=== PATIENT | male | born 1975 | race African-American/Black ===

== ENCOUNTER 2018-07-26 19:59 | Emergency (ER) | payer OTHER ==
[2018-07-26 20:05] VITALS: BP 136/81; PULSE 62; RESP 20; TEMP 98.5
--- NOTE | 2018-07-26 20:53 | ED ---
Upper Extremity HPI - General Chief Complaint: Extremity Injury, Upper Stated Complaint: Hand pain Time Seen by Provider: 07/26/18 20:10 Source: patient, RN notes reviewed, old records reviewed Mode of arrival: ambulatory Limitations: no limitations - History of Present Illness Initial Comments: Patient is a 42 year old male with CC of L hand and wrist pain from ganglion cyst. Patient reports that he has had this cyst drained in the past. 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 Patient is R handed. - Related Data Home Medications Medication Instructions Recorded Confirmed No Known Home Medications 07/26/18 07/26/18 Allergies Allergy/AdvReac Type Severity Reaction Status Date / Time No Known Allergies Allergy Verified 07/26/18 20:05 Review of Systems ROS Statement: Those systems with pertinent positive or pertinent negative responses have been documented in the HPI. ROS Other: All systems not noted in ROS Statement are negative. Past Medical History Past Medical History: No Reported History History of Any Multi-Drug Resistant Organisms: None Reported Past Surgical History: No Surgical Hx Reported Past Psychological History: No Psychological Hx Reported Smoking Status: Never smoker Past Alcohol Use History: None Reported Past Drug Use History: None Reported General Exam - General Exam Comments Initial Comments: This is a 42 year old male, no acute distress. Limitations: no limitations General appearance: alert, in no apparent distress Head exam: Present: atraumatic, normocephalic, normal inspection Eye exam: Present: normal appearance, PERRL, EOMI. Absent: scleral icterus, conjunctival injection, periorbital swelling ENT exam: Present: normal exam, mucous membranes moist Neck exam: Present: normal inspection. Absent: tenderness, meningismus, lymphadenopathy Respiratory exam: Present: normal lung sounds bilaterally. Absent: respiratory distress, wheezes, rales, rhonchi, stridor Cardiovascular Exam: Present: regular rate, normal rhythm, normal heart sounds. Absent: systolic murmur, diastolic murmur, rubs, gallop, clicks GI/Abdominal exam: Present: soft, normal bowel sounds. Absent: distended, tenderness, guarding, rebound, rigid Extremities exam: Present: normal inspection, full ROM, normal capillary refill. Absent: tenderness, pedal edema, joint swelling, calf tenderness Left Upper Arm exam: Present: normal inspection, full ROM Elbow exam: Present: normal inspection, full ROM Forearm Wrist exam: Present: normal inspection, full ROM Hand Wrist exam: Present: full ROM, swelling (evidence of GAnglion cyst measuring 2cm. ). Absent: normal inspection Back exam: Present: normal inspection Neurological exam: Present: alert, oriented X3, CN II-XII intact Psychiatric exam: Present: normal affect, normal mood Skin exam: Present: warm (d), dry, intact, normal color. Absent: rash Course Vital Signs 07/26/18 20:01 Temperature 98.5 F Pulse Rate 62 Respiratory 20 Rate Blood Pressure 136/81 O2 Sat by Pulse 100 Oximetry Procedures - Joint Aspiration/Injection Indications: to relieve pressure/pain Side of Body: left Joint Aspirated: wrist/hand Ultrasound Guidance: No Skin Prep: sterile prep and drape Local Anesthesia Used: Lidocaine 1% Amount of Anesthesia Used (mLs): 2 Needle Size Used: 18G Syringe Size Used: 5cc Fluid Obtained: viscous Total Fluid Obtained (mls): 2 Patient Tolerated Procedure: well, no complications Medical Decision Making - Medical Decision Making 42 year old male with L ganglion cyst requesting drainage. Sterile field used and approximately 2cc of viscous clear fluid removed from ganglion cyst from 18g needle. Patient has relief. Patient had dressing placed over area. Discussed that he should follow up with PCP and orthopedic. Return parameters discussed. Disposition Clinical Impression: Ganglion cyst of dorsum of left wrist Disposition: HOME SELF-CARE Condition: Good Instructions: Ganglion Cysts (ED) Additional Instructions: Patient should take Motrin times for pain. Apply ice over the area. Monitor for any signs of infection including worsening redness swelling or drainage. Follow-up with follow up specialist. Is patient prescribed a controlled substance at d/c from ED?: No Referrals: None,Stated [Primary Care Provider] - 1-2 days Sameer Cantu MD [STAFF PHYSICIAN] - 1-2 days Gavino Lundberg DO [Doctor of Osteopathic Medicine] - 1-2 days Time of Disposition: 20:52
== END 2018-07-26 21:02 | disposition home or self-care (01) ==
LOC: EC 19:59
DX: M67.432 Ganglion, left wrist (principal)
CPT/HCPCS: 20612; 99283

== ENCOUNTER → 2023-09-18 | Outpatient (CLI) | payer OTHER ==
--- NOTE | 2023-09-18 11:26 | XR ---
EXAMINATION TYPE: XR forearm LT DATE OF EXAM: 09/18/2023 COMPARISON: None HISTORY: Injury TECHNIQUE: 2 view left forearm FINDINGS: No acute fractures or dislocations evident. Soft tissues appear normal. Joint spaces are pr eserved. No elevation of anterior or posterior fat pad at the elbow is evident. Follow up exams can be performed 7-10 days from acute trauma for continued pain. IMPRESSION: 1. No acute abnormality left forearm
--- NOTE | 2023-09-18 11:28 | XR ---
EXAMINATION TYPE: XR wrist complete LT DATE OF EXAM: 09/18/2023 COMPARISON: None HISTORY: Pain TECHNIQUE: 4 view left wrist FINDINGS: No acute fracture or dislocation is evident. Joint spaces are preserved. Soft tissues are n ormal. If there is pain at the anatomic snuff box, nuclear medicine bone scan would be recommended for addit ional evaluation. Follow-up x-ray can be performed 7-10 days from acute trauma for continued pain. IMPRESSION: 1. No acute osseous abnormality left wrist
--- NOTE | 2023-09-18 11:29 | XR ---
EXAMINATION TYPE: XR hand complete LT DATE OF EXAM: 09/18/2023 COMPARISON: None HISTORY: Pain TECHNIQUE: 3 view left hand FINDINGS: No acute fracture or dislocation is evident. Joint spaces are preserved. Soft tissues are n ormal. Follow up exams can be performed 7-10 days from acute trauma for continued pain. IMPRESSION: 1. No acute osseous abnormality left hand
== END | disposition home or self-care (01) ==
LOC: RADXRMAIN 10:27
PROVIDERS: ATTEND Emergency Medicine
DX: S66.115A Strain of flexor muscle, fascia and tendon of left ring finger at wrist and hand level, initial encounter (principal); S56.812A Strain of other muscles, fascia and tendons at forearm level, left arm, initial encounter; S59.912A Unspecified injury of left forearm, initial encounter